=== PATIENT | female | born 1985 | race American Indian/Alaskan Native ===

== ENCOUNTER 2018-10-24 00:23 | Emergency (ER) | payer SELFPAY | END 2018-10-24 00:26 | disposition left against medical advice (07) | LOC: ED 00:23 ==

== ENCOUNTER 2022-03-30 02:12 | Emergency (ER) | payer OTHER ==
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
== END 2022-03-30 03:27 ==
LOC: ED 02:12
DX: S00.81XA Abrasion of other part of head, initial encounter (principal); F17.200 Nicotine dependence, unspecified, uncomplicated; Z91.041 Radiographic dye allergy status; Z79.899 Other long term (current) drug therapy; V87.7XXA Person injured in collision between other specified motor vehicles (traffic), initial encounter; Y93.89 Activity, other specified; Y92.488 Other paved roadways as the place of occurrence of the external cause; Y99.8 Other external cause status
CPT/HCPCS: 99283